=== PATIENT | female | born 1950 | race Caucasian/White ===

== ENCOUNTER 2017-11-05 21:49 | Observation (INO) | payer OTHER ==
[~2017-11-05] VITALS: Ht 162.6 cm; Wt 81.5 kg
[~2017-11-05 21:49] MED LIST: LISINOPRIL-HCT1 EAC3 PO
[2017-11-05 22:28] LABS: HEMATOCRIT 49.9 % (36.0-46.0); HEMOGLOBIN 17.1 G/DL (11.9-15.5); MCH 32.1 PG (29.0-34.0); MCHC 34.3 G/DL (30.0-36.0); MCV 93.6 FL (83-99); PLATELET COUNT 272 K/uL (156-360); RBC DIS.WIDTH-CV 12.9 % (11.8-14.6); RBC DIS.WIDTH-SD 44.4 % (39-53); RED BLOOD COUNT 5.33 M/uL (3.80-5.20); WHITE BLOOD COUNT 17.3 K/uL (4.1-10.2)
[2017-11-05 22:41] LABS: ALBUMIN 4.1 g/dL (3.2-4.8); CHLORIDE 106 mEq/L (99-109); SODIUM 140 mEq/L (136-147)
[2017-11-05 22:44] LABS: GLUCOSE 160 mg/dL (70-99); TOTAL PROTEIN 6.9 g/dL (6.4-8.3)
[2017-11-05 22:46] LABS: TOTAL BILIRUBIN 0.5 mg/dL (0.0-1.0)
[2017-11-05 22:47] LABS: ALKALINE PHOSPHATASE 119 IU/L (3-129); CREATININE 0.8 mg/dL (0.6-1.3); GFR ESTIMATE (CALCULATED) > 59 mL/min/
[2017-11-05 22:48] LABS: UREA NITROGEN (BUN) 22 mg/dL (9-23)
[2017-11-05 22:49] LABS: AST (GOT) 19 IU/L (2-34)
[2017-11-05 22:50] LABS: ALT (GPT) 19 IU/L (3-49)
[2017-11-05 22:51] LABS: LIPASE 31 U/L (1.0-51.0)
[2017-11-06 05:30] LABS: APPEARANCE CLEAR ((CLEAR)); BILIRUBIN NEGATIVE; BLOOD SMALL; COLOR YELLOW ((YELLOW)); GLUCOSE (STRIP) NEGATIVE; KETONES NEGATIVE; LEUKOCYTES NEGATIVE; NITRITE POSITIVE; PROTEIN (STRIP) NEGATIVE; SPECIFIC GRAVITY 1.033 (1.000-1.030); UROBILINOGEN 0.2 MG/DL (0.2-1.0)
[2017-11-06 05:36] LABS: BACTERIA RARE /HPF; EPITHELIAL CELLS RARE /HPF; HYALINE CASTS 0-5 /LPF; MUCUS 2+ /LPF; RED BLOOD CELLS 0-5 /HPF (0-5); UCUL ADDED? NO; WHITE BLOOD CELLS 0-5 /HPF (0-5)
[2017-11-06] MEDS ORDERED: ATORVASTATIN CA40 MG PO (07:24)
[2017-11-06] MEDS ORDERED: LEVEMIR FL100 UNIT/1 SC (07:25)
[2017-11-06] MEDS ORDERED: VICTOZA0.6 MG/0.1 SC (07:26)
[2017-11-06 07:34] VITALS: BP 138/70
[2017-11-06 10:07] LABS: HEMATOCRIT 47.6 % (36.0-46.0); HEMOGLOBIN 15.9 G/DL (11.9-15.5); MCH 31.6 PG (29.0-34.0); MCHC 33.4 G/DL (30.0-36.0); MCV 94.6 FL (83-99); PLATELET COUNT 248 K/uL (156-360); RBC DIS.WIDTH-SD 45.3 % (39-53); RED BLOOD COUNT 5.03 M/uL (3.80-5.20); WHITE BLOOD COUNT 16.5 K/uL (4.1-10.2)
[2017-11-06 10:20] LABS: HEMOGLOBIN A1c (GLYCOHEMOGLOB) 7.9 % (Below 5.7)
[2017-11-06 10:26] LABS: ALBUMIN 3.7 G/DL (3.2-4.8); CHLORIDE 109 MEQ/L (99-109); POTASSIUM 3.9 MEQ/L (3.7-5.4); SODIUM 143 MEQ/L (136-147); TOTAL BILIRUBIN 0.5 MG/DL (0.0-1.0)
[2017-11-06 10:31] LABS: ALKALINE PHOSPHATASE 102 IU/L (3-129); ALT (GPT) 13 IU/L (3-49); AST (GOT) 11 IU/L (2-34); CREATININE 0.7 MG/DL (0.6-1.3); GFR ESTIMATE (CALCULATED) > 59 mL/min/; GLUCOSE 164 mg/dL (70-99); TOTAL PROTEIN 5.4 G/DL (6.4-8.3); UREA NITROGEN (BUN) 14 mg/dL (9-23)
[2017-11-06 11:40] VITALS: BP 136/68
[2017-11-06 11:44] VITALS: BP 137/79
[2017-11-06 11:47] VITALS: BP 120/74
[2017-11-06 15:14] VITALS: BP 156/82
[2017-11-06 15:50] VITALS: BP 129/76
[2017-11-06] MEDS ORDERED: NICOTINE PATCH1 EAC2 TD (16:11)
== END 2017-11-06 17:14 | disposition home or self-care (01) ==
LOC: EME 21:49 → EDOF 11-06 06:18 → ENRESERV 11-06 06:19 → 5WEST 11-06 07:30
PROVIDERS: Internal Medicine
DX: K52.9 Noninfective gastroenteritis and colitis, unspecified (principal); D72.829 Elevated white blood cell count, unspecified; E86.0 Dehydration; R09.02 Hypoxemia; T62.91XA Toxic effect of unspecified noxious substance eaten as food, accidental (unintentional), initial encounter; E11.9 Type 2 diabetes mellitus without complications; I10 Essential (primary) hypertension; J44.9 Chronic obstructive pulmonary disease, unspecified; E66.01 Morbid (severe) obesity due to excess calories; Z68.30 Body mass index [BMI] 30.0-30.9, adult; E78.00 Pure hypercholesterolemia, unspecified; F17.200 Nicotine dependence, unspecified, uncomplicated; Z79.4 Long term (current) use of insulin
CPT/HCPCS: 74177; 80053; 81003; 82948; 83036; 83630; 83690; 85027; 87177; 87493; 94799; 99202; 99281; 99285; G0378; J0696; J2270; J2405; J2765; J7030